=== PATIENT | female | born 1980 | race Two or more races ===

== ENCOUNTER 2016-07-09 | Outpatient (CLI) | payer OTHER | END 2016-07-09 22:05 | disposition critical access hospital (66) | CPT/HCPCS: A0425; A0429 ==

== ENCOUNTER 2016-07-09 22:16 | Emergency (ER) | payer OTHER ==
[2016-07-09] MEDS ORDERED: KETOROLAC 60 MG/2 ML VIAL IM STA (22:24)
[2016-07-09] MEDS ORDERED: KETOROLAC 60 MG/2 ML VIAL ONE (22:28)
== END 2016-07-10 00:24 | disposition home or self-care (01) ==
DX: S53.401A Unspecified sprain of right elbow, initial encounter (principal); W01.0XXA Fall on same level from slipping, tripping and stumbling without subsequent striking against object, initial encounter; Y93.75 Activity, martial arts; Y92.89 Other specified places as the place of occurrence of the external cause